=== PATIENT | female | born 1970 | race Caucasian/White ===

== ENCOUNTER 2017-01-22 21:00 | Inpatient (IN) | payer MEDICARE, OTHER ==
--- NOTE | ~2017-01-22 | PN ---
Unit #: [id number] #: [id number] Patient: CANDELARIA DIEZ [id number] [facility] [address] [place] [address] [id number] MR#: [id number] NAME: CANDELARIA DIEZ. ROOM: P258 Age: 46 Sex: F Admission Date: 01/22/2017 : 1970 Attending Physician: Den Garcia M.D. Admitting Physician: Den Garcia M.D. Primary Care Physician: Primary Care Physician Sandee BOOTHCE PROGRESS NOTES DATE 01/27/2017 DISCUSSION The patient is in brighter spirits today and reports significant reduction in paranoid thinking. Should she sustain progress, discharge should take place as early as tomorrow. Dictated by... Den Garcia M.D. CB/santo TD: 01/27/2017 15:25 JOB #: [id number] [facility] PROGRESS NOTES Page 1 of 1 X Den Garcia MD X PROGRESS NOTE
--- NOTE | ~2017-01-22 | PN ---
Unit #: [id number] #: [id number] Patient: CANDELARIA DIEZ [id number] [facility] [address] [place] [address] [id number] MR#: [id number] NAME: CANDELARIA DIEZ. ROOM: P258 Age: 46 Sex: F Admission Date: 01/22/2017 : 1970 Attending Physician: Den Garcia M.D. Admitting Physician: Den Garcia M.D. Primary Care Physician: Primary Care Physician Sandee LOVELL PROGRESS NOTES DATE 01/26/2017 DISCUSSION The patient is in brighter spirits today and is reporting (1)___ reduction and psychotic symptoms. She reports that she is herself surprised at the rapidity of her response to medication but feels as though she may be ready for discharge as early as tomorrow. Dictated by... Den Garcia M.D. CB/reno TD: 01/26/2017 21:49 JOB #: [id number] [facility] PROGRESS NOTES Page 1 of 1 X Den Garcia MD PROGRESS NOTE
--- NOTE | ~2017-01-22 | PA ---
Unit #: [id number] #: [id number] Patient: CANDELARIA DIEZ [id number] [place] [address] [id number] MR#: [id number] NAME: CANDELARIA DIEZ. ROOM: P258 Age: 46 Sex: F Admission Date: 01/22/2017 : 1970 Date of Assessment: 01/23/2017 Attending Physician: Den Garcia M.D. Admitting Physician: Den Garcia M.D. Primary Care Physician: Primary Care Physician No PSYCHIATRIC ASSESSMENT IDENTIFYING INFORMATION The patient is a 46-year-old white female admitted to the [address] [place] [address] unit with increasing paranoia and delusional thinking. INFORMANT(S) Patient. RELIABILITY Poor. CHIEF COMPLAINT Too much shaking. HISTORY OF PRESENT ILLNESS The patient is a 46-year-old white female who apparently carries a diagnosis of schizoaffective spectrum disorder. She is followed at [facility] and is prescribed lamotrigine, benztropine, aripiprazole, gabapentin and fluoxetine. She has been noncompliant with these medications for some time stating that she stopped the medications 4 days ago "because I had a sore throat." The patient is quite bizarre during today's interview. She requests whether this physician is "one of those people who are going to beat me up at 4 o'clock." She also reports that she lives with a friend but that her is in [place]. When queried as to what the identity of this country is, the patient reports that she "does not give that information out." The patient had reported some suicidal ideation prompting a friend to remove firearms from the home but she is currently denying suicidal ideation. The patient denies prior psychiatric hospitalizations though this would seem rather doubtful given the degree of psychosis evident during today's interview. Her face sheet, however, does not indicate previous treatment at this facility. PAST PSYCHIATRIC HISTORY As above. FAMILY HISTORY Noncontributory. SOCIAL HISTORY The patient states she lives with a friend. She claims to be but that her resides out of country. She denies use of alcohol, tobacco or street drugs. Unit #: [id number] #: [id number] Patient: CANDELARIA DIEZ MEDICAL HISTORY Significant for a history of migraine headache and hypothyroidism. MEDICATION HISTORY 1. Synthroid. 2. Gabapentin. 3. Aripiprazole. 4. Lamotrigine. 5. Fluoxetine. 6. Cogentin. 7. Trazodone. ALLERGIES Codeine, Lortab. MENTAL STATUS EXAM At this time, reveals the patient to be an obese white female appearing her stated age. She is in no apparent physical distress at time of examination. She is awake, alert, oriented in all spheres. His mood is calm. Her affect blunted and strange. Speech is impoverished and evasive. There are no gross deficits in memory or cognition noted. Intelligence is judged to be in the average range based on fund of knowledge. The patient is generally cooperative during interview. She is currently denying suicidal/homicidal ideation. She does report positive delusional thinking of the paranoid type and her judgement and insight appear to be significantly impaired. ASSETS AND LIABILITIES Patient's assets to be assessed. Liabilities, lack of resources. ADMITTING DIAGNOSES 1. Schizoaffective disorder. 2. Hypothyroidism. PSYCHIATRIC PLAN/TREATMENT GOALS The patient will be restarted on previously prescribed medications. Suicide precautions remain in place. The importance of consistent medication compliance is discussed with the patient today at some length, particularly given the fact that she is prescribed lamotrigine. ESTIMATED LENGTH OF STAY Five to seven days with follow up to take place through the auspices of community mental health resources. Dictated by... Den Garcia M.D. CB/santo TD: 01/23/2017 15:04 JOB #: [id number] Unit #: [id number] #: [id number] Patient: CANDELARIA DIEZ PSYCHIATRIC ASSESSMENT Page 1 of 1 X Den Garcia MD X PSYCHIATRIC ASSESSMENT
--- NOTE | ~2017-01-22 | DS ---
Unit #: [id number] #: [id number] Patient: CANDELARIA DIEZ [id number] [place] [address] [id number] MR#: [id number] NAME: CANDELARIA DIEZ. ROOM: P258 Age: 46 Sex: F Admission Date: 01/22/2017 : 1970 Discharge Date: 01/28/2017 Attending Physician: Den Garcia M.D. Primary Care Physician: Primary Care Physician No DISCHARGE SUMMARY REASON FOR ADMISSION The patient is a 46-year-old, , white female, admitted to the [facility] unit with increasing psychosis after a period of medication noncompliance. HOSPITAL COURSE The patient was admitted to the [facility] unit and restarted on previously prescribed medications. Rapid upper titration of medications was reinitiated with Abilify, finally being dose to be 30 mg daily. The patient reported rapid and positive response to her medications re-initiation reporting reduction in paranoid delusional thinking as well as auditory hallucinations. By 01/28/2017, the patient was in brighter spirits and was denying any psychotic symptoms. She requested discharge on that date and it was so ordered. FINAL DIAGNOSES Schizoaffective disorder. DISPOSITION ON DISCHARGE The patient is discharged on the following medications: Trazodone 100 mg at h.s. p.r.n. insomnia, Cogentin 2 mg at bedtime for extrapyramidal symptoms, Prozac 60 mg daily for depression, Lamictal 50 mg at bedtime for mood stabilization, Abilify 30 mg daily for psychosis, Neurontin 300 mg q.i.d. for anxiety, and Synthroid 0.125 mg daily for hypothyroidism. DISCHARGE INSTRUCTIONS No dietary or physical restrictions were placed upon the patient at the time of discharge. FOLLOWUP Followup will take place through the auspices of community mental health resources. PROGNOSIS The patient's prognosis is considered good. Dictated by... Den Garcia M.D. ANIBAL/migdalia TD: 01/28/2017 15:46 Unit #: [id number] #: [id number] Patient: CANDELARIA DIEZ JOB #: [id number] DISCHARGE SUMMARY Page 1 of 1 X Den Garcia MD DISCHARGE SUMMARY
--- NOTE | ~2017-01-22 | PN ---
Unit #: [id number] #: [id number] Patient: CANDELARIA DIEZ [id number] [facility] [address] [place] [address] [id number] MR#: [id number] NAME: CANDELARIA DIEZ. ROOM: P258 Age: 46 Sex: F Admission Date: 01/22/2017 : 1970 Attending Physician: Den Garcia M.D. Admitting Physician: Den Garcia M.D. Primary Care Physician: Primary Care Physician Sandee GALLEGOS NOTES DATE 01/25/2017 DISCUSSION The patient is active within the therapeutic milieu and compliant with medications and ortiz routine. She seems a bit less bizarre during today's interview and I have spoken with her about the importance of consistence compliance with all prescribed psychotropic and other medications. Dictated by... Den Garcia M.D. CB/reno TD: 01/26/2017 03:16 JOB #: [id number] [facility] GALLEGOS NOTES Page 1 of 1 X Den Garcia MD X PROGRESS NOTE
--- NOTE | ~2017-01-22 | HP ---
Unit #: [id number] #: [id number] Patient: MEAGAN DIEZ [id number] [place] [address] [id number] MR#: [id number] NAME: MEAGAN DIEZ. ROOM: P258 Age: 46 Sex: F Admission Date: 01/22/2017 : 1970 Attending Physician: Den Garcia M.D. Admitting Physician: Den Garcia M.D. Primary Care Physician: Primary Care Physician No HISTORY AND PHYSICAL HISTORY OF PRESENT ILLNESS Meagan is a 46 year old admitted to [address] [place] [address] with paranoia and delusional thinking. She is a poor historian so her history is taken from her chart. PAST MEDICAL HISTORY 1. Obesity. 2. Hypothyroidism. 3. History of migraine headaches. PAST SURGICAL HISTORY 1. T an A. 2. Appendectomy. 3. Cholecystectomy. ALLERGIES No known drug allergies. SOCIAL HISTORY She denies cigarettes, alcohol and illicit drug use. FAMILY HISTORY Medically noncontributory. REVIEW OF SYSTEMS CONSTITUTIONAL: No fever or chills. HEENT: Denies any sore throat, ear pain or runny nose. CARDIOVASCULAR: Denies chest pain, irregular heart rhythm or palpitations. CHEST: Denies shortness of breath or cough. No hemoptysis. GASTROINTESTINAL: Denies nausea, vomiting, diarrhea or chronic constipation. ENDOCRINE: Denies history of increased thirst or urination. No recent significant weight loss or gain. GENITOURINARY: Denies dysuria, frequency, or hematuria. SKIN: Denies any rashes. HEMATOLOGIC: Denies history of increased bleeding or bruising. MUSCULOSKELETAL: Denies any hot, swollen joints. No generalized muscle pain. NEUROLOGIC: Denies problems with vision or speech. No frequent, severe headaches. No numbness, tingling or weakness in any extremities. Denies loss of bladder or bowel control. CURRENT MEDICATIONS 1. Synthroid 0.125 mg daily. Unit #: [id number] #: [id number] Patient: MEAGAN DIEZ 2. Abilify 30 mg daily. 3. Lamictal 50 mg daily. 4. Prozac 60 mg daily. 5. Milk of Magnesia p.r.n. 6. Maalox p.r.n. 7. Neurontin 300 mg q.i.d. p.r.n. 8. Cogentin 2 mg q.h.s. p.r.n. 9. Desyrel 100 mg q.h.s. p.r.n. PHYSICAL EXAMINATION GENERAL: Alert, obese, no apparent distress. VITAL SIGNS: Blood pressure 150/100, heart rate 100, respirations 16, temperature 98.6. WEIGHT: 184. HEIGHT: 5 feet 8 inches. SKIN: Warm and dry without rash or lesion. HEENT: Normocephalic. TMs not viewed. Oral and nasal passages clear. Conjunctivae clear. PERRLA. EOMs intact. NECK: Supple without lymphadenopathy or thyromegaly. HEART: Regular rate and rhythm without murmur. LUNGS: Clear. ABDOMEN: Soft, nontender. : Not done. EXTREMITIES: No evidence of cyanosis, clubbing or edema. Moves all without focal deficit. NEUROLOGICAL: Grossly within normal limits. Cranial Nerves: II: Visual sandra are intact. III, IV AND : Extraocular movements are intact. Pupils are equal, round and reactive to light. V: Facial sensation is grossly normal. VII: Facial movements and expression are normal. VIII: Auditory acuity grossly intact. IX, X: Uvula is midline. Phonation is normal. XI: Patient shrugs shoulders and turns head normally. XII: Tongue protrudes in the midline. Sensory and Motor Function: Sensory and motor sensation is grossly normal. Motor: moves all extremities well. Coordination: Gait is normal. Deep Tendon Reflexes: Intact. IMPRESSION Psychiatric admission. RECOMMENDATIONS PSYCHIATRIC: Per psychiatrist. MEDICAL: 1. See no contraindications to participate in facility's activities. 2. Continue Synthroid. Check TSH. Monitor blood pressure q. shift. If remains high will need to address. MEDICAL PROGNOSIS Good. MEDICAL CONDITION Stable. Dictated by... Marely Carrasco P.A.-C. for Unit #: [id number] #: [id number] Patient: MEAGAN DIEZ Zion Villalta/santo TD: 01/23/2017 18:58 JOB #: [id number] HISTORY AND PHYSICAL Page 1 of 1 X Marely Carrasco HISTORY AND PHYSICAL
--- NOTE | ~2017-01-22 | PN ---
Unit #: [id number] #: [id number] Patient: CANDELARIA DIEZ [id number] [facility] [address] [place] [address] [id number] MR#: [id number] NAME: CANDELARIA DIEZ. ROOM: P258 Age: 46 Sex: F Admission Date: 01/22/2017 : 1970 Attending Physician: Den Garcia M.D. Admitting Physician: Den Garcia M.D. Primary Care Physician: Primary Care Physician Sandee LOVELL PROGRESS NOTES DATE 01/24/2017 DISCUSSION The patient remains delusional. She states that she "keeps finding her belongings in the garbage can." She is at least compliant with medications and is a bit more active within the therapeutic milieu. We continue current treatment. Dictated by... Den Garcia M.D. CB/macarena TD: 01/24/2017 12:41 JOB #: [id number] [facility] PROGRESS NOTES Page 1 of 1 X Den Garcia MD X PROGRESS NOTE
[2017-01-23 09:37] LABS: BASOPHIL% 0.4 % (0-2.5); EOSINOPHIL% 0.5 % (0.0-7.0); HEMATOCRIT 45.6 % (35.0-45.0); HEMOGLOBIN 14.8 gm/dL (12.0-16.0); LYMPHOCYTE# 1.5 X10e3 (1.0-3.5); LYMPHOCYTE% 15.2 % (17.0-45.0); MEAN CELL VOLUME 89.7 FL (83-96); MEAN CORPUSCULAR HEMOGLOBIN 29.1 PG (28-34); MEAN CORPUSCULAR HGB CONC 32.5 g/dL (30-36); MEAN PLATELET VOLUME 9.1 FL (6.5-11.5); MONOCYTE# 0.5 X10e3 (0-1.0); MONOCYTE% 5.1 % (3.0-12.0); NEUTROPHIL# 7.9 X10e3 (1.5-7.1); NEUTROPHIL% 78.8 % (40-75); PLATELET COUNT 221 X10e3 (140-420); RED BLOOD COUNT 5.08 X10e (3.90-5.30); RED CELL DISTRIBUTION WIDTH 13.2 % (11.0-15.5); WHITE BLOOD COUNT 10.1 X10e3 (4.0-10.5)
[2017-01-23 09:40] LABS: DIFF IND NO
[2017-01-23 09:49] LABS: URINE APPEARANCE CLEAR; URINE BILIRUBIN NEG (NEG); URINE BLOOD 1+ (NEG); URINE COLOR YELLOW; URINE GLUCOSE NEG (NEG); URINE KETONE NEG (NEG); URINE LEUKOCYTE ESTERASE TRACE (NEG); URINE NITRATE NEG (NEG); URINE PROTEIN NEG (NEG); URINE SPECIFIC GRAVITY 1.008 (1.003-1.035); URINE UROBILINOGEN 0.2 MG/DL (NEG)
[2017-01-23 09:52] LABS: U HYALINE CASTS AUWI 0-2 /[LPF]; URBCS1 AUWI 0-2 /[HPF] (0-2); URINE BACTERIA AUWI 1+ (NEGATIVE); URINE SQUAMOUS EPITHELIAL CELL FEW /[HPF]
[2017-01-23 10:54] LABS: AMPHETAMINE NEG (NEG); BARBITURATES NEG (NEG); BENZODIAZEPINES NEG (NEG); COCAINE NEG (NEG); MARIJUANA NEG (NEG); OPIATES NEG (NEG); TRICYCLIC ANTIDEPRESSANTS NEG (NEG); U METHADONE NEG (NEG)
[2017-01-23 12:38] LABS: ALBUMIN SERUM 4.6 g/dL (3.5-5.0); BILIRUBIN,TOTAL 0.8 mg/dL (0.2-2.0); BUN/CREATININE RATIO 14.28; CALCIUM SERUM 9.6 mg/dL (8.4-10.2); CREATININE SERUM 0.7 mg/dL (0.6-1.4); GLOM FILT RATE Estimated 102.5 mL/min (>60); PROTEIN TOTAL SERUM 7.9 g/dL (6.0-8.3)
== END 2017-01-28 14:00 | disposition home or self-care (01) | DRG 885 ==
LOC: P2L 23:53
PROVIDERS: Specialist
DX: F25.9 Schizoaffective disorder, unspecified (principal); E03.9 Hypothyroidism, unspecified; E66.9 Obesity, unspecified; Z90.49 Acquired absence of other specified parts of digestive tract; Z68.27 Body mass index [BMI] 27.0-27.9, adult
CPT/HCPCS: 80053; 80307; 81003; 85025